=== PATIENT | male | born 1955 | race Hispanic/Latino ===

== ENCOUNTER → 2018-05-08 | Outpatient (CLI) | payer OTHER ==
[~2018-05-08] MED LIST: ACET-66 PO; ATOR10 PO; CELE200 PO; DAPA5TAB PO; DRON400T2 PO; FENO48TA4 PO; FERR324T10 PO; FISH1CAP63 PO; LOSA1TAB37 PO; METF-446 PO; METO25TA6 PO; OXYC5 PO; PREG25 PO; RIVA10TA PO; SITA100T12 PO; TRAM50TA4 PO
== END | disposition home or self-care (01) ==
LOC: RAH 07:45
PROVIDERS: ATTEND Orthopaedic Surgery
DX: S43.082A Other subluxation of left shoulder joint, initial encounter (principal); M19.012 Primary osteoarthritis, left shoulder; M75.102 Unspecified rotator cuff tear or rupture of left shoulder, not specified as traumatic; M25.412 Effusion, left shoulder; M25.712 Osteophyte, left shoulder; X58.XXXA Exposure to other specified factors, initial encounter; Y93.89 Activity, other specified; Y92.89 Other specified places as the place of occurrence of the external cause; Y99.8 Other external cause status
CPT/HCPCS: 73221

== ENCOUNTER → 2018-08-28 | Outpatient (CLI) | payer OTHER | END | disposition home or self-care (01) | LOC: RAH 07:42 | PROVIDERS: ATTEND Orthopaedic Surgery | DX: M65.811 Other synovitis and tenosynovitis, right shoulder (principal); M25.411 Effusion, right shoulder; M19.011 Primary osteoarthritis, right shoulder; M75.51 Bursitis of right shoulder | CPT/HCPCS: 73221 ==

== ENCOUNTER 2019-01-09 06:00 | Day surgery (SDC) | payer OTHER ==
[~2019-01-09] VITALS: Ht 167.6 cm; Wt 110.7 kg
[~2019-01-09 06:00] MED LIST changes: -ACET-66 PO; +APIX5TAB PO; +CALC-866 PO; -CELE200 PO; -DAPA5TAB PO; +EMPA10TA PO; +FENO48TA16 PO; -FENO48TA4 PO; -FERR324T10 PO; -METO25TA6 PO; -OXYC5 PO; -PREG25 PO; -RIVA10TA PO; -SITA100T12 PO
[2019-01-09] MEDS ORDERED: SODIUM CHLORIDE 0.9% 1000ML 1,000 ML IV ONE (06:13)
[2019-01-09 06:59] VITALS: BP 122/69
[2019-01-09] MEDS ORDERED: GLYCOPYRROLATE 0.2 MG/ML 5 ML VIAL ONE (08:05)
[2019-01-09] MEDS ORDERED: PROPOFOL 10 MG/ML 20ML VIAL IV ONE (08:05)
[2019-01-09 08:28] VITALS: BP 116/75
[2019-01-09 08:33] VITALS: BP 114/75
[2019-01-09 08:38] VITALS: BP 115/73
[2019-01-09 08:43] VITALS: BP 116/73
--- NOTE | 2019-01-09 09:00 | NUR ---
dc pt dc home via wc, no distress noted. denied any pain or discomforts. accompanied by spouse. dc intructions reinforced, instructed to hold eliquis for 48 hrs. to resume other homemeds, to f/u with dr. zambrano. pt / spouse verbalized understanding.
== END 2019-01-09 09:00 | disposition home or self-care (01) ==
LOC: DAH 06:00 → ENDO 06:00
PROVIDERS: ATTEND Internal Medicine
DX: K92.1 Melena (principal); D12.4 Benign neoplasm of descending colon; D12.2 Benign neoplasm of ascending colon; K64.0 First degree hemorrhoids; K57.30 Diverticulosis of large intestine without perforation or abscess without bleeding; I10 Essential (primary) hypertension; E78.5 Hyperlipidemia, unspecified; E11.9 Type 2 diabetes mellitus without complications; K21.9 Gastro-esophageal reflux disease without esophagitis; I48.91 Unspecified atrial fibrillation; Z79.01 Long term (current) use of anticoagulants; Z79.899 Other long term (current) drug therapy; Z86.010 Personal history of colon polyps; Z98.890 Other specified postprocedural states; Z72.89 Other problems related to lifestyle; Z91.048 Other nonmedicinal substance allergy status; Z83.3 Family history of diabetes mellitus; Z82.49 Family history of ischemic heart disease and other diseases of the circulatory system
CPT/HCPCS: 45380; 45385; 82948 ×2; 88305; A4215; A4221; A4222; A4223; A4606; A4615; A4663; J2704; J3490; J7030

== ENCOUNTER → 2019-01-23 | Outpatient (CLI) | payer OTHER | END | disposition home or self-care (01) | LOC: RAH 06:58 | PROVIDERS: ATTEND Internal Medicine Gastroenterology | DX: R14.0 Abdominal distension (gaseous) (principal) | CPT/HCPCS: 78264; A9541 ==

== ENCOUNTER 2019-04-04 09:57 | Day surgery (SDC) | payer OTHER ==
[2019-04-03 13:19] LABS: BASOPHILS % (AUTO) 0.5 % (0.0-5.0); EOSINOPHILS % (AUTO) 1.3 % (0.0-8.0); HEMATOCRIT 50.5 % (42-54); MEAN CORPUSCULAR HGB CONC 32.7 g/dL (32.0-36.0); MEAN CORPUSCULAR VOLUME 91.8 fL (79-99); MONOCYTES % (AUTO) 9.3 % (3.0-13.0); NEUTROPHILS % (AUTO) 55.3 % (40.0-77.0); PLATELET COUNT (AUTO) 163 K/uL (130-400); RED CELL DISTRIBUTION WIDTH 13.3 % (11.0-15.5); WHITE BLOOD COUNT (AUTO) 6.2 K/uL (4.8-10.8)
[2019-04-03 13:29] LABS: POTASSIUM 4.5 mmol/L (3.5-5.1)
[2019-04-03 13:44] VITALS: BP 157/70
--- NOTE | 2019-04-03 19:02 | NUR ---
MD DR. HUSSEIN NOTIFIED THAT PATIENT ON ANTIBIOTIC FOR EAR INFECTION, NO FURTHER ORDERS GIVEN
[~2019-04-04] VITALS: Ht 170.2 cm; Wt 111.1 kg
[2019-04-04] VITALS (13 sets, daily range): BP systolic 102–127; BP diastolic 54–94
[~2019-04-04 09:57] MED LIST changes: -FENO48TA16 PO; +FENO48TA9 PO
[2019-04-04] MEDS: CEFAZOLIN SODIUM 1 GM VIAL IVP SCH ×2 (11:00→14:12)
[2019-04-04] MEDS ORDERED: SODIUM CHLORIDE 0.9% 1000ML 1,000 ML IV ONE (11:12)
--- NOTE | 2019-04-04 11:35 | NUR ---
POTENTIAL FOR INFECTION: SHAVED RIGHT SHOULDER / RT UPPER ARM PER SAMANTHA RODRIGUEZ, FOLLOWED BY WIPING WITH SARATH: 2% CHLORHEXIDINE GLUCONATE CLOTH PATIENTS PRE-OP SKIN PREP
[2019-04-04] MEDS ORDERED: AMOX500C2 PO (11:41)
[2019-04-04] MEDS ORDERED: NAPR-1023 PO (11:41)
[2019-04-04] MEDS ORDERED: EPINEPHRINE 1 MG/ML 30ML VIAL IJ ONE (12:11)
[2019-04-04] MEDS ORDERED: SUCCINYLCHOLINE 200MG/10ML SYR ONE (12:15)
[2019-04-04] MEDS ORDERED: LIDOCAINE PF 2% 5ML ABBOJECT ONE (12:15)
[2019-04-04] MEDS ORDERED: PROPOFOL 10 MG/ML 20ML VIAL IV ONE (12:16)
[2019-04-04] MEDS ORDERED: ROCURONIUM 10MG/1ML SYR 10 MG/ML ML ONE (12:16)
[2019-04-04] MEDS ORDERED: FENTANYL CITRATE PF 50 MCG/1 ML 2ML VIAL ONE (12:16)
[2019-04-04] MEDS ORDERED: ROPIVACAINE 0.5% 5MG/ML 30ML IJ ONE (12:20)
[2019-04-04] MEDS ORDERED: EPHEDRINE SULFATE 50 MG/ML AMPULE ONE (13:45)
[2019-04-04] MEDS ORDERED: NEOSTIGMINE 5MG/5ML SYR IV ONE (16:32)
[2019-04-04] MEDS ORDERED: KETOROLAC TROMETHAMINE 30MG/ML ONE (16:32)
[2019-04-04] MEDS ORDERED: ONDANSETRON HCL 4 MG/2 ML VIAL ONE (16:32)
[2019-04-04] MEDS ORDERED: GLYCOPYRROLATE 1 MG/5 ML SYRINGE ONE (16:32)
[2019-04-04] MEDS ORDERED: CEPH500B PO (17:00)
[2019-04-04] MEDS ORDERED: HYDR-4457 PO (17:00)
--- NOTE | 2019-04-04 18:00 | NUR ---
PATIENT ARRIVED TO DAY PATIENT VIA STRETCHER BY JAMIN YOUNGBLOOD. PATIENT AAOX3, RESPIRATIONS UNLABORED, VITAL SIGNS STABLE, DENIES ANY PAIN. DRESSINGS TO RIGHT UPPER SHOULDER DRY/INTACT, SLING IN PLACE.
--- NOTE | 2019-04-04 18:30 | NUR ---
DISCHARGE INSTRUCTIONS PROVIDED TO PATIENT'S SPOUSE, PRESCRIPTIONS PROVIDED AND INSTRUCTED TO CALL DR HUSSEIN IN THE AM TO SET UP APPOINTMENT FOR 04/06/19. PATIENT'S SPOUSE VERBALIZED UNDERSTANDING.
--- NOTE | 2019-04-04 18:50 | NUR ---
PATIENT DISCHARGED FROM FACILITY VIA WHEELCHAIR BY NURSE. PATIENT ASSISTED INTO PRIVATE VEHICLE DRIVEN BY SPOUSE.
== END 2019-04-04 18:50 | disposition home or self-care (01) ==
LOC: DAH 09:57
PROVIDERS: ATTEND Orthopaedic Surgery
DX: M75.101 Unspecified rotator cuff tear or rupture of right shoulder, not specified as traumatic (principal); M65.811 Other synovitis and tenosynovitis, right shoulder; M25.411 Effusion, right shoulder; M19.011 Primary osteoarthritis, right shoulder; M75.41 Impingement syndrome of right shoulder; G89.29 Other chronic pain; I10 Essential (primary) hypertension; E11.9 Type 2 diabetes mellitus without complications; Z96.653 Presence of artificial knee joint, bilateral; Z79.01 Long term (current) use of anticoagulants; Z88.8 Allergy status to other drugs, medicaments and biological substances; Z98.890 Other specified postprocedural states; Z83.3 Family history of diabetes mellitus; Z79.2 Long term (current) use of antibiotics; Z87.891 Personal history of nicotine dependence; Z82.49 Family history of ischemic heart disease and other diseases of the circulatory system
CPT/HCPCS: 29824; 29826; 29827; 29828; 36415; 64415; 76942; 80048; 82948 ×2; 85025; A4213; A4215; A4221; A4222; A4223; A4565; A4649 ×6; A4663; A4930; A5120; A6204; A6223; A6260; C1713 ×3; G0168; J0171; J0330; J0690; J1885; J2001; J2405; J2704; J2710; J2795; J3010; J3490 ×2; J7030 ×2

== ENCOUNTER → 2019-05-07 | Outpatient (CLI) | payer OTHER ==
[~2019-05-07] MED LIST changes: +AMOX500C2 PO; -CALC-866 PO; +CEPH500B PO; -FISH1CAP63 PO; +HYDR-4457 PO
== END | disposition home or self-care (01) ==
LOC: SLP 20:35
PROVIDERS: ATTEND Internal Medicine Cardiovascular Disease
DX: G47.33 Obstructive sleep apnea (adult) (pediatric) (principal)
CPT/HCPCS: 95811

== ENCOUNTER → 2019-10-25 | Outpatient (CLI) | payer OTHER | END | disposition home or self-care (01) | LOC: RAH 09:00 | PROVIDERS: ATTEND Orthopaedic Surgery | DX: M19.011 Primary osteoarthritis, right shoulder (principal); M75.51 Bursitis of right shoulder | CPT/HCPCS: 73221 ==

== ENCOUNTER → 2019-11-27 | Outpatient (CLI) | payer OTHER | END | disposition home or self-care (01) | LOC: SHCH 08:27 | PROVIDERS: ATTEND Internal Medicine Cardiovascular Disease | DX: I25.119 Atherosclerotic heart disease of native coronary artery with unspecified angina pectoris (principal) | CPT/HCPCS: 93306; 93356 ==

== ENCOUNTER 2019-12-26 06:00 | Day surgery (SDC) | payer OTHER ==
[2019-12-24 13:29] LABS: BASOPHILS % (AUTO) 0.5 % (0.0-5.0); EOSINOPHILS % (AUTO) 1.1 % (0.0-8.0); HEMATOCRIT 48.7 % (42-54); MEAN CORPUSCULAR HEMOGLOBIN 31.5 pg (27.0-33.0); MEAN CORPUSCULAR HGB CONC 33.5 g/dL (32.0-36.0); MEAN CORPUSCULAR VOLUME 94.2 fL (79-99); MONOCYTES % (AUTO) 7.1 % (3.0-13.0); NEUTROPHILS % (AUTO) 47.5 % (40.0-77.0); PLATELET COUNT (AUTO) 222 K/uL (130-400); RED BLOOD CELL COUNT(AUTO) 5.17 MIL/uL (4.50-6.20); RED CELL DISTRIBUTION WIDTH 13.2 % (11.0-15.5); WHITE BLOOD COUNT (AUTO) 7.5 K/uL (4.8-10.8)
[2019-12-24 13:37] LABS: APPEARANCE,URINE Clear (CLEAR); BILIRUBIN,URINE Negative (NEGATIVE); COLOR,URINE Yellow (YELLOW); GLUCOSE, URINE (UA) >=1000 mg/dL (NEGATIVE); KETONES,URINE Negative (NEGATIVE); LEUKOCYTE ESTERASE ,URINE Negative (NEGATIVE); NITRATE,URINE Negative (NEGATIVE); OCCULT BLOOD,URINE Negative (NEGATIVE); PH,URINE 5.5 (5.0-8.0); PROTEIN,URINE Negative (NEGATIVE)
[2019-12-24 13:47] LABS: CREATININE 0.8 mg/dL (0.5-1.5)
[2019-12-24 13:50] LABS: BACTERIA,URINE Rare /HPF (None Seen); MUCUS,URINE Few LPF (None Seen); RBC,URINE 0-1 /HPF (0-1); SQUAMOUS EPITHELIAL CELL,UR Rare /HPF (0-2); WBC,URINE 0-1 /HPF (0-1)
[2019-12-24 13:54] LABS: INR 0.95 (0.85-1.15); PARTIAL THROMBOPLASTIN TIME 28.3 SEC (26.3-35.5); PROTHROMBIN TIME 10.3 SEC (9.6-11.6)
[2019-12-25 09:14] VITALS: BP 143/71
[2019-12-26] VITALS (19 sets, daily range): BP systolic 99–132; BP diastolic 50–71
[~2019-12-26] VITALS: Ht 170.2 cm; Wt 105.5 kg
[~2019-12-26 06:00] MED LIST changes: -AMOX500C2 PO; -CEPH500B PO; +HYDR-4060 PO; -HYDR-4457 PO; -LOSA1TAB37 PO; -TRAM50TA4 PO; +VALS80TA30 PO
[2019-12-26] MEDS ORDERED: IOHEXOL 350 MG/ML 100ML INFUS..BTL IV ONE (07:09)
[2019-12-26] MEDS ORDERED: HEPARIN SODIUM 1000UNIT/ML 10ML VIAL ONE (07:09)
[2019-12-26] MEDS ORDERED: LIDOCAINE HCL 2% 20ML ONE (07:09)
[2019-12-26] MEDS ORDERED: IOHEXOL-350 50ML VIAL IV ONE ×2 (07:09→07:10)
[2019-12-26] MEDS ORDERED: GLUCAGON 1MG KIT 1 MG ML IM PRN (08:00)
[2019-12-26] MEDS ORDERED: DEXTROSE 50%-WATER 50 ML DISP.SYRIN IV PRN (08:00)
[2019-12-26] MEDS ORDERED: SODIUM CHLORIDE 0.9% 1000ML 1,000 ML IV SCH (08:00)
[2019-12-26] MEDS ORDERED: INSULIN HUMULIN R 100 UNIT/ML 3ML SQ SCH (11:30)
== END 2019-12-26 16:05 | disposition home or self-care (01) ==
LOC: DAH 06:00
PROVIDERS: ATTEND Internal Medicine Cardiovascular Disease
DX: I25.10 Atherosclerotic heart disease of native coronary artery without angina pectoris (principal); I10 Essential (primary) hypertension; E11.9 Type 2 diabetes mellitus without complications; M19.90 Unspecified osteoarthritis, unspecified site; I48.0 Paroxysmal atrial fibrillation; Z79.01 Long term (current) use of anticoagulants; Z79.899 Other long term (current) drug therapy
CPT/HCPCS: 36415; 71045; 80048; 81001; 82948 ×3; 85025; 85610; 85730; 93005; 93458; A4215; A4216; A4221; A4222; A4223 ×2; A4606; C1894; J1644 ×2; J3490; J7070; Q9965; Q9967 ×3

== ENCOUNTER 2020-01-23 06:18 | Day surgery (SDC) | payer OTHER ==
[2020-01-16 15:01] LABS: BASOPHILS % (AUTO) 0.9 % (0.0-5.0); EOSINOPHILS % (AUTO) 1.3 % (0.0-8.0); LYMPHOCYTES % (AUTO) 39.6 % (21.0-51.0); MEAN CORPUSCULAR HEMOGLOBIN 30.9 pg (27.0-33.0); MEAN CORPUSCULAR HGB CONC 33.1 g/dL (32.0-36.0); MEAN CORPUSCULAR VOLUME 93.5 fL (79-99); MONOCYTES % (AUTO) 8.4 % (3.0-13.0); NEUTROPHILS % (AUTO) 49.2 % (40.0-77.0); PLATELET COUNT (AUTO) 243 K/uL (130-400); RED BLOOD CELL COUNT(AUTO) 5.56 MIL/uL (4.50-6.20); RED CELL DISTRIBUTION WIDTH 13.1 % (11.0-15.5); WHITE BLOOD COUNT (AUTO) 7.8 K/uL (4.8-10.8)
[2020-01-16 15:07] LABS: CREATININE 1.1 mg/dL (0.5-1.5)
[2020-01-22 11:38] VITALS: BP 134/72
[2020-01-23] VITALS (19 sets, daily range): BP systolic 104–133; BP diastolic 56–73
[~2020-01-23] VITALS: Ht 170.2 cm; Wt 106.3 kg
[~2020-01-23 06:18] MED LIST changes: -DRON400T2 PO; +FLUT16H NASAL; +MV-M1TAB20 PO; +PROP325C PO
[2020-01-23] MEDS ORDERED: SODIUM CHLORIDE 0.9% 1000ML 1,000 ML IV ONE (07:26)
[2020-01-23] MEDS ORDERED: ROCURONIUM 10MG/1ML SYR 10 MG/ML ML ONE (07:46)
[2020-01-23] MEDS ORDERED: FENTANYL CITRATE PF 50 MCG/1 ML 2ML VIAL ONE (07:46)
[2020-01-23] MEDS ORDERED: PROPOFOL 10 MG/ML 20ML VIAL IV ONE (07:46)
[2020-01-23] MEDS ORDERED: SUCCINYLCHOLINE CHLORIDE 20 MG/ML 10 ML VIAL ONE (07:46)
[2020-01-23] MEDS ORDERED: LIDOCAINE PF 2% 5ML ABBOJECT ONE (07:46)
[2020-01-23] MEDS ORDERED: ROPIVACAINE 0.5% 5MG/ML 30ML IJ ONE (07:51)
[2020-01-23] MEDS: CEFAZOLIN SODIUM 1 GM VIAL IVP SCH ×2 (08:00→10:45)
[2020-01-23] MEDS ORDERED: MIDAZOLAM HCL 1 MG/ML 2ML VIAL ONE (08:02)
[2020-01-23] MEDS ORDERED: CEFAZOLIN SODIUM 1 GM VIAL ONE (09:16)
[2020-01-23] MEDS ORDERED: EPHEDRINE SULFATE 50 MG/ML AMPULE ONE (10:41)
[2020-01-23] MEDS ORDERED: GLYCOPYRROLATE 1 MG/5 ML SYRINGE ONE (12:23)
[2020-01-23] MEDS ORDERED: NEOSTIGMINE 5MG/5ML SYR IV ONE (12:23)
[2020-01-23] MEDS ORDERED: ONDANSETRON HCL 4 MG/2 ML VIAL ONE (12:24)
[2020-01-23] MEDS ORDERED: KETOROLAC TROMETHAMINE 30MG/ML ONE (12:25)
[2020-01-23] MEDS ORDERED: MEPERIDINE-PF 25 MG/ML SYG ONE ×3 (12:30→13:08)
[2020-01-23] MEDS ORDERED: HYDR-4060 PO (12:45)
[2020-01-23] MEDS ORDERED: CEPH500B PO (12:45)
== END 2020-01-23 14:10 | disposition home or self-care (01) ==
LOC: DAH 06:18
PROVIDERS: ATTEND Orthopaedic Surgery
DX: M75.101 Unspecified rotator cuff tear or rupture of right shoulder, not specified as traumatic (principal); Z96.653 Presence of artificial knee joint, bilateral; Z98.890 Other specified postprocedural states
CPT/HCPCS: 23412; 36415; 64415; 76942; 80048; 82948 ×2; 85025; 96374; A4215; A4216; A4221; A4222; A4223 ×2; A4565; A4600; A4615; A4649; A4657; A4663; A4930; A6204; C1713 ×2; C9803; G0168; J0330; J0690 ×2; J1885; J2001; J2175 ×3; J2250; J2405; J2704; J2710; J2795; J3010; J3490 ×2; J7030 ×2; U0003

== ENCOUNTER → 2021-05-11 | Outpatient (CLI) | payer MEDICARE ==
[~2021-05-11] MED LIST changes: +CEPH500B PO; +FENO48TA10 PO; -FENO48TA9 PO
== END | disposition home or self-care (01) ==
LOC: RAH 07:14
PROVIDERS: ATTEND Internal Medicine Gastroenterology
DX: R10.84 Generalized abdominal pain (principal); R11.0 Nausea
CPT/HCPCS: 78264; A9541

== ENCOUNTER 2021-06-28 18:03 | Emergency (ER) | payer MEDICARE ==
[~2021-06-28] VITALS: Ht 170.2 cm; Wt 112.9 kg
[2021-06-28] MEDS ORDERED: 0.9%NACL 1000ML 1,000 ML IV ONE ×2 (18:30)
[2021-06-28 18:34] LABS: BASOPHILS % (AUTO) 0.3 % (0.0-5.0); HEMATOCRIT 43.8 % (42-54); LYMPHOCYTES % (AUTO) 14.1 % (21.0-51.0); MEAN CORPUSCULAR HEMOGLOBIN 29.9 pg (27.0-33.0); MEAN CORPUSCULAR HGB CONC 32.9 g/dL (32.0-36.0); MEAN CORPUSCULAR VOLUME 90.9 fL (79-99); MONOCYTES % (AUTO) 6.3 % (3.0-13.0); NEUTROPHILS % (AUTO) 78.5 % (40.0-77.0); PLATELET COUNT (AUTO) 163 K/uL (130-400); RED BLOOD CELL COUNT(AUTO) 4.82 MIL/uL (4.50-6.20); RED CELL DISTRIBUTION WIDTH 12.8 % (11.0-15.5); WHITE BLOOD COUNT (AUTO) 7.9 K/uL (4.8-10.8)
[2021-06-28 18:44] LABS: CREATININE 0.8 mg/dL (0.5-1.5); POTASSIUM 3.5 mmol/L (3.5-5.1)
[2021-06-28 18:47] LABS: APPEARANCE,URINE Clear (CLEAR); BILIRUBIN,URINE Negative (NEGATIVE); COLOR,URINE Yellow (YELLOW); GLUCOSE, URINE (UA) Negative (NEGATIVE); KETONES,URINE Trace mg/dL (NEGATIVE); LEUKOCYTE ESTERASE ,URINE Negative (NEGATIVE); NITRATE,URINE Negative (NEGATIVE); OCCULT BLOOD,URINE Negative (NEGATIVE); PROTEIN,URINE Negative (NEGATIVE)
[2021-06-28 18:52] LABS: ALBUMIN 3.2 g/dL (3.5-5.0); BILIRUBIN,TOTAL 0.9 mg/dL (0.2-1.0); TOTAL PROTEIN, SERUM 6.5 g/dL (6.0-8.3)
[2021-06-28] MEDS ORDERED: LOPERAMIDE HCL 2 MG CAP PO ONE (19:00)
[2021-06-28] MEDS ORDERED: ONDANSETRON 4MG INJ ONE (19:54)
[2021-06-28] MEDS ORDERED: MORPHINE 2 MG SYG ONE (19:54)
[2021-06-28] MEDS ORDERED: ONDANSETRON 4MG INJ IVP ONE (20:00)
[2021-06-28] MEDS ORDERED: MORPHINE 2 MG SYG IVP ONE (20:00)
[2021-06-28 21:00] VITALS: BP 106/53
[2021-06-28] MEDS ORDERED: ONDA4TAB10 PO (21:25)
[2021-06-28] MEDS ORDERED: LOPE2CAP PO (21:25)
[2021-06-28] MEDS ORDERED: DICY20TA2 PO (21:25)
== END 2021-06-28 21:55 | disposition home or self-care (01) ==
LOC: EDH 18:03
DX: K52.9 Noninfective gastroenteritis and colitis, unspecified (principal); E86.0 Dehydration; I48.91 Unspecified atrial fibrillation; E11.9 Type 2 diabetes mellitus without complications; I10 Essential (primary) hypertension; Z88.8 Allergy status to other drugs, medicaments and biological substances; Z79.899 Other long term (current) drug therapy; Z79.01 Long term (current) use of anticoagulants; Z79.84 Long term (current) use of oral hypoglycemic drugs; Z98.890 Other specified postprocedural states
CPT/HCPCS: 36415; 80053; 81003; 83605; 83735; 84145; 84484; 85025; 87088; 96361; 96374; 96375; 99284; J2405; J7030 ×2

== ENCOUNTER → 2021-09-15 | Outpatient (CLI) | payer MEDICARE ==
[~2021-09-15] MED LIST changes: +DICY20TA2 PO; +LOPE2CAP PO; +ONDA4TAB10 PO
== END | disposition home or self-care (01) ==
LOC: RAH 08:15
PROVIDERS: ATTEND Orthopaedic Surgery
DX: M19.011 Primary osteoarthritis, right shoulder (principal); M75.41 Impingement syndrome of right shoulder; M75.51 Bursitis of right shoulder; Z47.31 Aftercare following explantation of shoulder joint prosthesis
CPT/HCPCS: 73221

== ENCOUNTER → 2022-01-29 | Outpatient (CLI) | payer MEDICARE | END | disposition home or self-care (01) | LOC: RAH 11:45 | PROVIDERS: ATTEND Internal Medicine | DX: M19.012 Primary osteoarthritis, left shoulder (principal); M06.4 Inflammatory polyarthropathy; M25.775 Osteophyte, left foot; M77.8 Other enthesopathies, not elsewhere classified; M75.102 Unspecified rotator cuff tear or rupture of left shoulder, not specified as traumatic | CPT/HCPCS: 73030; 73630 ==

== ENCOUNTER → 2022-09-07 | Outpatient (CLI) | payer MEDICARE | END | disposition home or self-care (01) | LOC: SHCH 08:42 | PROVIDERS: ATTEND Internal Medicine Cardiovascular Disease | DX: I42.0 Dilated cardiomyopathy (principal) | CPT/HCPCS: 93306 ==

== ENCOUNTER 2022-12-14 09:53 | Day surgery (SDC) | payer MEDICARE ==
[2022-12-10 15:16] LABS: BASOPHILS # (AUTO) 0.03 K/uL (0.00-0.20); BASOPHILS % (AUTO) 0.4 % (0.0-5.0); EOSINOPHILS # (AUTO) 0.14 K/uL (0.00-0.70); EOSINOPHILS % (AUTO) 2.1 % (0.0-8.0); HEMATOCRIT 48.1 % (42-54); IMMATURE GRANULOCYTE ABSOLUTE 0.04 K/uL (0-1); LYMPHOCYTES # (AUTO) 3.3 K/uL (1.0-4.8); LYMPHOCYTES % (AUTO) 48.8 % (21.0-51.0); MEAN CORPUSCULAR HEMOGLOBIN 30.7 pg (27.0-33.0); MEAN CORPUSCULAR HGB CONC 33.3 g/dL (32.0-36.0); MEAN CORPUSCULAR VOLUME 92.1 fL (79-99); MONOCYTES # (AUTO) 0.6 K/uL (0.1-1.0); MONOCYTES % (AUTO) 9.3 % (3.0-13.0); NEUTROPHILS # (AUTO) 2.6 K/uL (1.8-7.7); NEUTROPHILS % (AUTO) 38.8 % (40.0-77.0); PLATELET COUNT (AUTO) 196 K/uL (130-400); RED BLOOD CELL COUNT(AUTO) 5.22 MIL/uL (4.50-6.20); RED CELL DISTRIBUTION WIDTH 13.3 % (11.0-15.5); WHITE BLOOD COUNT (AUTO) 6.8 K/uL (4.8-10.8)
[2022-12-10 15:33] LABS: INR 0.98 (0.85-1.15); PROTHROMBIN TIME 11.4 SEC (9.6-11.6)
[2022-12-10 15:35] LABS: PARTIAL THROMBOPLASTIN TIME 33.5 SEC (26.3-35.5)
[2022-12-10 15:36] LABS: CREATININE 0.9 mg/dL (0.5-1.5); POTASSIUM 4.1 mmol/L (3.5-5.1)
[2022-12-10 15:44] VITALS: BP 135/69; PULSE 54; RESP 12
[~2022-12-14] VITALS: Ht 170.2 cm; Wt 110.7 kg
[~2022-12-14 09:53] MED LIST changes: +ALBU6.7H14 IH; -ATOR10 PO; +ATOR40TA69 PO; -CEPH500B PO; +CHOL500051 PO; -DICY20TA2 PO; -FENO48TA10 PO; -HYDR-4060 PO; +LACT1CAP81 PO; -LOPE2CAP PO; -MV-M1TAB20 PO; -ONDA4TAB10 PO; +PYRI100L2 PO; +VITA400T7 PO; +VITAMIN B12 PO
[2022-12-14 10:00] VITALS: BP 124/61; PULSE 53; RESP 16
[2022-12-14] MEDS ORDERED: 0.9%NACL 1000ML 1,000 ML IV ONE (10:30)
[2022-12-14] MEDS ORDERED: LIDOCAINE HCL 1% MDV 50ML VIAL ONE (12:14)
[2022-12-14] MEDS ORDERED: MEPERIDINE-PF 25 MG/ML SYG ONE (12:14)
[2022-12-14] MEDS ORDERED: MIDAZOLAM HCL 1 MG/ML 2ML VIAL ONE (12:14)
[2022-12-14] MEDS ORDERED: BUPIVACAINE/PF 0.25% 30ML VIAL IJ ONE (12:14)
[2022-12-14] MEDS ORDERED: BACITRACIN 1 EACH PACKET TP ONE (12:55)
[2022-12-14 13:20] VITALS: BP 110/67; PULSE 53; RESP 18
[2022-12-14] MEDS ORDERED: ACETAMINOPHEN 500 MG TABLET PO PRN (13:30)
[2022-12-14] MEDS ORDERED: ACETAMINOPHEN WITH CODEINE 1 TAB TAB PO PRN ×3 (13:30)
[2022-12-14 13:35] VITALS: BP 134/86; PULSE 61; RESP 14
[2022-12-14 13:50] VITALS: BP 121/64; PULSE 62; RESP 19
[2022-12-14 14:10] VITALS: BP 112/66; PULSE 60; RESP 20
[2022-12-14 14:25] VITALS: BP 118/68
== END 2022-12-14 14:30 | disposition home or self-care (01) ==
LOC: DAH 09:53
PROVIDERS: ATTEND Internal Medicine Cardiovascular Disease
DX: I48.0 Paroxysmal atrial fibrillation (principal); R00.1 Bradycardia, unspecified; I10 Essential (primary) hypertension; E11.9 Type 2 diabetes mellitus without complications; G47.33 Obstructive sleep apnea (adult) (pediatric); I42.9 Cardiomyopathy, unspecified; E66.09 Other obesity due to excess calories; E78.5 Hyperlipidemia, unspecified; Z86.16 Personal history of COVID-19; Z83.3 Family history of diabetes mellitus; Z82.49 Family history of ischemic heart disease and other diseases of the circulatory system; Z79.899 Other long term (current) drug therapy; Z98.890 Other specified postprocedural states; Z79.84 Long term (current) use of oral hypoglycemic drugs; Z96.653 Presence of artificial knee joint, bilateral; Z68.41 Body mass index [BMI] 40.0-44.9, adult; Z79.01 Long term (current) use of anticoagulants
CPT/HCPCS: 80048; 85025; 85610; 85730; 36415; 93005; 33285; 82948 ×2; 33286; A4649; C1764; J7030; J3490 ×2; J2250; J2175; A4215; A4222; A4221; A4663; A4216; A4606; A4223 ×3; 99156; 99157

== ENCOUNTER 2023-11-28 09:23 | Emergency (ER) | payer MEDICARE ==
[~2023-11-28] VITALS: Ht 167.6 cm; Wt 108.9 kg
[~2023-11-28 09:23] MED LIST changes: -ALBU6.7H14 IH; +AZEL23SP2 NS; -CHOL500051 PO; -FLUT16H NASAL; +INSULIN SQ; -LACT1CAP81 PO; +PANT40TA55 PO; -PROP325C PO; -PYRI100L2 PO; +SUCR1TAB2 PO; -VITA400T7 PO; -VITAMIN B12 PO
[2023-11-28 09:56] LABS: BASOPHILS # (AUTO) 0.03 K/uL (0.00-0.20); BASOPHILS % (AUTO) 0.5 % (0.0-5.0); EOSINOPHILS # (AUTO) 0.11 K/uL (0.00-0.70); EOSINOPHILS % (AUTO) 1.9 % (0.0-8.0); HEMATOCRIT 45.8 % (42-54); IMMATURE GRANULOCYTE ABSOLUTE 0.02 K/uL (0-1); LYMPHOCYTES # (AUTO) 1.7 K/uL (1.0-4.8); LYMPHOCYTES % (AUTO) 30.6 % (21.0-51.0); MEAN CORPUSCULAR HEMOGLOBIN 30.7 pg (27.0-33.0); MEAN CORPUSCULAR HGB CONC 34.3 g/dL (32.0-36.0); MEAN CORPUSCULAR VOLUME 89.5 fL (79-99); MONOCYTES # (AUTO) 0.4 K/uL (0.1-1.0); MONOCYTES % (AUTO) 7.2 % (3.0-13.0); NEUTROPHILS # (AUTO) 3.4 K/uL (1.8-7.7); NEUTROPHILS % (AUTO) 59.4 % (40.0-77.0); PLATELET COUNT (AUTO) 144 K/uL (130-400); RED BLOOD CELL COUNT(AUTO) 5.12 MIL/uL (4.50-6.20); RED CELL DISTRIBUTION WIDTH 13.6 % (11.0-15.5); WHITE BLOOD COUNT (AUTO) 5.7 K/uL (4.8-10.8)
[2023-11-28 10:03] LABS: CREATININE 0.8 mg/dL (0.5-1.3); POTASSIUM 3.6 mmol/L (3.5-5.1)
[2023-11-28] MEDS: 0.9%NACL 1000ML 1,000 ML IV ONE (10:53)
[2023-11-28] MEDS: ketOROlac 15MG/ML VIAL (15MG/ML) IV ONE (10:53)
[2023-11-28] MEDS: ONDANSETRON 4MG INJ IVP ONE (10:53)
[2023-11-28 11:17] LABS: APPEARANCE,URINE CLEAR (CLEAR); BILIRUBIN,URINE NEGATIVE (NEGATIVE); COLOR,URINE YELLOW (YELLOW); GLUCOSE, URINE (UA) >=1000 mg/dL (NEGATIVE); KETONES,URINE 60 mg/dL (NEGATIVE); LEUKOCYTE ESTERASE ,URINE NEGATIVE Leu/uL (NEGATIVE); NITRATE,URINE NEGATIVE (NEGATIVE); OCCULT BLOOD,URINE NEGATIVE (NEGATIVE); PH,URINE 5.5 (5.0-8.0); PROTEIN,URINE 10 mg/dL (NEGATIVE); UROBILINOGEN,URINE 0.2 mg/dL (0.2-1.0)
[2023-11-28 11:18] LABS: ADD UA MICROSCOPIC YES
[2023-11-28 11:22] LABS: MUCUS,URINE RARE LPF (None Seen); RBC,URINE 0-1 /HPF (0-1); WBC,URINE 0-1 /HPF (0-1)
[2023-11-28] MEDS: acetaMINOPHEN 500 MG TABLET PO ONE (11:45)
[2023-11-28 12:09] VITALS: BP 116/65; PULSE 69; RESP 17; TEMP 99.6; O2SAT 92
[2023-11-28] MEDS ORDERED: PRED20TA3 PO (14:52)
[2023-11-28] MEDS ORDERED: SULF1TAB42 PO (14:52)
== END 2023-11-28 15:19 | disposition home or self-care (01) ==
LOC: EDH 09:23
DX: E86.0 Dehydration (principal); J32.8 Other chronic sinusitis; G89.29 Other chronic pain; R51.9 Headache, unspecified; E11.9 Type 2 diabetes mellitus without complications; I10 Essential (primary) hypertension; I48.91 Unspecified atrial fibrillation; Z79.01 Long term (current) use of anticoagulants; Z79.84 Long term (current) use of oral hypoglycemic drugs; Z79.899 Other long term (current) drug therapy; Z98.890 Other specified postprocedural states
CPT/HCPCS: 99285; 96374; 71045; 96361; 96375; 84484; 80048; 85025; 87040; 83605; 81001; 36415; 93005; J7030; J2405; J1885

== ENCOUNTER 2024-02-17 19:30 | Emergency (ER) | payer MEDICARE ==
[~2024-02-17] VITALS: Ht 167.6 cm; Wt 104.3 kg
[~2024-02-17 19:30] MED LIST changes: +PRED20TA3 PO; +SULF1TAB42 PO
[2024-02-17 20:27] VITALS: BP 132/84; PULSE 64; RESP 16; TEMP 98; O2SAT 98
--- NOTE | 2024-02-17 20:31 | ERN ---
General Chief Complaint: Other Problems Stated Complaint: WANTS TB CHECK Time Seen by MD: 19:34 Time Seen by Midlevel: 19:34 Source: patient History of Present Illness Initial Comments Patient is a 61-year-old male presenting to the emergency department with concerns of a possible TB exposure. Patient states that on February 08 he visited a local assisted here in [place]. He was in the assisted for less than an hour visiting a relative. Today on the news he was informed that there was a TB case in that same assisted. On arrival he specifically denies any chest pain, shortness of breath, cough, hemoptysis, fever, chills, weight loss, night sweats, or any other symptoms at this time. Allergies: Coded Allergies: adhesive (Verified Allergy, Unknown, 05/19/15) metoprolol (Unverified Allergy, Unknown, 12/11/19) Home Meds Active Scripts Prednisone (Prednisone) 20 Mg Tablet, 1 TAB PO AD for 6 Days, #14 TAB 0 Refills TAKE 1 TAB BY MOUTH THREE TIMES PER DAY X3 DAYS, THEN TAKE 1 TAB BY MOUTH TWICE A DAY X2 DAYS, THEN TAKE 1 TAB BY MOUTH ONCE A DAY X1 DAY. Prov:CARLY MALONEY MD 11/28/23 Sulfamethoxazole/Trimethoprim (Bactrim Ds Tablet) 800 Mg-160 Mg Tablet, 1 TAB PO BID for 14 Days, #28 TAB 0 Refills Prov:CARLY MALONEY MD 11/28/23 Sucralfate (Sucralfate) 1 Gram Tablet, 1 GM PO QID, #60 TAB 0 Refills MUST DISSOLVE IN WATER DO NOT CRUSH Prov:VALDEZ LOMBARDI MD 10/18/23 Pantoprazole Sodium (Protonix) 40 Mg Ectab, 40 MG PO DAILY, #15 TAB.EC 0 Refills Prov:VALDEZ LOMBARDI MD 10/18/23 Reported Medications [Insulin] No Conflict Check, 38 UNITS SQ DAILY 10/14/23 Azelastine/Fluticasone (Azelastin-Flutic 137-50Mcg Spr) 137 Mcg-50 Mcg/[place].pump, 2 SPRAY NS BID 10/14/23 Atorvastatin Calcium (LIPITOR) 40 Mg Tablet, 40 MG PO HS, TAB 12/13/22 Valsartan (Valsartan) 80 Mg Tablet, 80 MG PO DAILY, TAB 12/25/19 Apixaban (Eliquis) 5 Mg Tablet, 5 MG PO BID, TAB 01/08/19 Empagliflozin (Jardiance) 10 Mg Tablet, 10 MG PO DAILY, TAB 01/08/19 Metformin HCl (Metformin HCl) 1,000 Mg Tablet, 1000 MG PO BID, TAB 05/19/15 Past Medical History Past Medical History: A-Fib, Diabetes-Type II, Hypertension Past Surgical History: Other Surgical History Other: BACK,BILATERAL KNEE, RT SHOULDER Social History Social History: Negative, Lives with family ROS Dictation CONSTITUTIONAL: Negative except for HPI HEAD/FACE: Negative except for HPI EENT: Negative except for HPI RESPIRATORY: Negative except for HPI GASTROINTESTINAL/ABDOMINAL: Negative except for HPI GENITOURINARY: Negative except for HPI MUSCULOSKELETAL: Negative except for HPI INTEGUMENTARY: Negative except for HPI NEUROLOGICAL/PSYCH: Negative except for HPI HEMATOLOGIC/LYMPHATIC: Negative except for HPI All Systems Negative, Except as noted above. 13 point review of systems assessed and all negative except for above. Physical Exam Physical Exam Dictation Vital Signs reviewed General Appearance: Alert, oriented x 3, no acute distress, well developed, nourished. Head and Face: non-traumatic. Eyes: PERRL, pink conjunctivas, eyelid no trauma, anterior chamber with arcus senilis. Ears: Pinnas intact and no signs of trauma or erythema ear canals clear and no discharge TM no erythema Nose: No discharge, no bleeding. Oropharynx: Mouth normal, tongue pink, pharynx clear,no erythema, tonsils no exudates, no abscesses noted, mucous membrane moist Neck: Supple, non-tender, no thyromegaly, no masses, no JVD, no bruits Breast:Deferred Chest:No tenderness, no crepitus, no paradoxical movement, no retractions Lungs:Clear, well-ventilated, symmetric, no rales, no wheezing, no rhonchi, no stridor, good breath sounds bilaterally Heart: Regular rate, regular rhythm, no murmur, no gallops Vascular: no peripheral edema, Abdomen: Soft, positive bowel sounds, nondistended, no guarding, nontender, no rebound, no masses no hepatomegaly, no splenomegaly, no San's sign, no hernias. Rectal: Deferred Genital: Deferred Neurological: Normal speech, motor function intact, sensory function intact Musculoskeletal: Neck nontender, full range of motion, back nontender, full range of motion, Extremities: nontender, full range of motion Skin: Color pink, dry, no turgor, no rash, no lacerations, no abrasions, no contusions. Lymphatic: Deferred MDM MDM: Patient is a 61-year-old male presenting to the emergency department with concerns of a possible TB exposure. Patient states that on February 08 he visited a local assisted here in [place]. He was in the assisted for less than an hour visiting a relative. Today on the news he was informed that there was a TB case in that same assisted. On arrival he specifically denies any chest pain, shortness of breath, cough, hemoptysis, fever, chills, weight loss, night sweats, or any other symptoms at this time. His physical examination is unremarkable. His vital signs are stable. I did offer a chest x-ray however patient kindly refused stating that he needed to be out of the ER at 9:00 p.m. because he needed to hop picker his . He is declining a chest x- ray at this time. It did advised that he follow up with his primary care doctor as soon as possible for further evaluation. Patient will be discharged home Differential diagnosis: Wellness examination, TB exposure, There are no social concerns with this patient. Prescription drug management Prescriptions will include: None Medical management and examination interpretation discussions were had by me with other qualified healthcare professionals as indicated for the patient's c are. ED Course Vital Signs Date Time Temp Pulse Resp B/P (MAP) Pulse Ox O2 Delivery O2 Flow Rate FiO2 02/17/24 19:34 98.1 65 16 133/86 97 Room Air 0 DX & DISP Disposition: Discharge Departure Impression: Primary Impression: Wellness examination Condition: Stable Additional Instructions: Based on your history and physical examination your at a low risk for developing/misael tuberculosis. Over the next couple of days to weeks please monitor your health. If you develop any high fevers, shortness of breath, night sweats, weight loss, or blood in your cough please report to the ER for further evaluation. Follow up with your primary care doctor for further evaluation. Return to the emergency department for any new or worsening symptoms. Referrals: ROSY HARRIS (PCP) I have reviewed the case, and I agree with, Diagnosis and Plan I performed the substantive portion of the visit. I have reviewed and personally made and approve the management plan that is documented in the note by myself or the PATRICIA. I acknowledge for responsibility for the patient's management plan. WADE MORA Feb 17, 2024 20:31
== END 2024-02-17 20:38 | disposition home or self-care (01) ==
LOC: EDH 19:30
DX: Z00.8 Encounter for other general examination (principal); E11.9 Type 2 diabetes mellitus without complications; I10 Essential (primary) hypertension; Z79.01 Long term (current) use of anticoagulants; Z79.84 Long term (current) use of oral hypoglycemic drugs; Z79.899 Other long term (current) drug therapy
CPT/HCPCS: 99281

== ENCOUNTER 2024-12-28 07:02 | Day surgery (SDC) | payer MEDICARE ==
[2024-12-26 12:02] VITALS: BP 129/82; PULSE 68; RESP 14; TEMP 98.8
[~2024-12-28] VITALS: Ht 170.2 cm; Wt 110.8 kg
[2024-12-28] VITALS (11 sets, daily range): BP systolic 114–137; BP diastolic 54–81; PULSE 46–56; RESP 15–18; TEMP 97.1–97.6
[~2024-12-28 07:02] MED LIST changes: +0.9%NACL 1000ML 1,000 ML IV ONE; +APIX2.5T PO; -APIX5TAB PO; -AZEL23SP2 NS; +HYDR-4060 PO; +INSULIN INJ; -INSULIN SQ; +NAPR-1505 PO; +OMEP40CA21 PO; -PANT40TA55 PO; -PRED20TA3 PO; -SUCR1TAB2 PO; -SULF1TAB42 PO; +probiotic PO; +vitamin b 12 PO; +vitamin e PO
[2024-12-28] MEDS ORDERED: MIDAZOLAM HCL 1 MG/ML 2ML VIAL ONE (07:25)
[2024-12-28] MEDS: IOHEXOL 180 MG/ML 10 ML VIAL ONE (08:23)
--- NOTE | 2024-12-28 09:04 | NUR ---
POST-OP RECOVERY PATIENT AWAKE AND ORIENTED X4. BANDAID TO LEFT UPPER THIGH. NO ACTIVE BLEEDING OR DRAINAGE. NO REDNESS OR SWELLING. PATIENT ABLE TO WIGGLE TOES AND MOVE FOOT.
--- NOTE | 2024-12-28 09:30 | OP ---
Operative Note: DATE OF PROCEDURE: 12/28/24 PREOPERATIVE DIAGNOSIS: Left hip osteoarthritis. POSTOPERATIVE DIAGNOSIS: Left hip osteoarthritis. PROCEDURE PERFORMED: Left hip intra-articular steroid injection with fluoroscopic guidance. SURGEON: Moriah Sahni MD DIE CASTING MACHINE MAINTAINER: None. ANESTHESIA: MAC . ANESTHESIA: YOLI Howard. ESTIMATED BLOOD LOSS: None. COMPLICATIONS: None. DRAINS: None. SPECIMENS REMOVED: None. STATEMENT OF MEDICAL NECESSITY: The patient is a 69-year-old male who suffers from left hip osteoarthritis responding well to intra-articular steroid injection. After discussion of the risks, benefits and alternatives with the patient , he voluntarily agreed to undergo the aforementioned procedure. DESCRIPTION OF PROCEDURE: The patient was properly identified in the preoperative holding area. Surgical site marking verified. Surgery consent reviewed. He was then taken to the operating room and placed on the OR table in a supine position. After induction of anesthetic, all bony prominences were well padded. A surgical timeout was done verifying the correct surgery side, s ite, and location to be performed. The left hip was then prepped and draped in the usual sterile fashion. We then began our procedure using fluoroscopic guidance to localize the hip joint. I then used an 18-gauge spinal needle to access the hip joint and injected a cocktail with 80mg Depo-Medrol, Marcaine and omnipaque. Using a small amount of the injection, we verified placement of the needle in the joint with fluoroscopy. Once we saw the contrast lining the joint capsule, we then injected the remaining portion of the cocktail and we took fluoroscopy verifying again the injection was done in the right place. We then withdrew our needle and applied a Band-Aid to the injection site. The patient was then awakened from anesthesia and taken to the recovery room in stable condition. MORIAH SAHNI MD Dec 28, 2024 09:30
--- NOTE | 2024-12-28 12:44 | HMCIMG ---
Intraoperative fluoroscopic assessment of the left hip INDICATION: Left hip steroid injection COMPARISON: None available Fluoroscopy time: 0.59 seconds. FINDINGS: 8 images demonstrate needle in the left hip joint space in satisfactory position for steroid injection. IMPRESSION: Details of the finding in the procedure note.
== END 2024-12-28 09:34 | disposition home or self-care (01) ==
LOC: DAH 07:02
PROVIDERS: ATTEND Student in an Organized Health Care Education/Training Program
DX: M16.12 Unilateral primary osteoarthritis, left hip (principal); G47.33 Obstructive sleep apnea (adult) (pediatric); I25.10 Atherosclerotic heart disease of native coronary artery without angina pectoris; I48.91 Unspecified atrial fibrillation; E11.9 Type 2 diabetes mellitus without complications; E78.5 Hyperlipidemia, unspecified; Z98.890 Other specified postprocedural states; Z99.89 Dependence on other enabling machines and devices; Z79.01 Long term (current) use of anticoagulants; Z20.822 Contact with and (suspected) exposure to COVID-19; Z88.8 Allergy status to other drugs, medicaments and biological substances; Z79.4 Long term (current) use of insulin; Z79.899 Other long term (current) drug therapy
CPT/HCPCS: 20610; 82948 ×2; 77002; 73503; J1010; A4663; J3010; J7030; J2250; J2704; J0665; Q9965; A4930; A5120; A4215; A4213; A4222; A4221; A4216; A4223 ×2; J0690; J3490

== ENCOUNTER 2025-02-25 06:27 | Day surgery (SDC) | payer MEDICARE ==
[~2025-02-25] VITALS: Ht 167.6 cm; Wt 113.4 kg
[2025-02-25] VITALS (11 sets, daily range): BP systolic 113–135; BP diastolic 56–73; PULSE 50–55; RESP 14–17; TEMP 97.4–98.1
[2025-02-25] MEDS: 0.9%NACL 1000ML 1,000 ML IV ONE (06:53)
--- NOTE | 2025-02-25 09:54 | NUR ---
Full and complete discharge instructions given to Patient and Family both verbally and in writing. Tolerated fluids and voided in bathroom. PIV removed with catheter tip intact. W/C to POV with Family to home.
== END 2025-02-25 09:55 | disposition home or self-care (01) ==
LOC: ENDO 06:27 → DAH 06:27 → ENDO 09:55
PROVIDERS: ATTEND Internal Medicine Gastroenterology
DX: K58.0 Irritable bowel syndrome with diarrhea (principal); D12.2 Benign neoplasm of ascending colon; D12.4 Benign neoplasm of descending colon; D12.3 Benign neoplasm of transverse colon; K57.30 Diverticulosis of large intestine without perforation or abscess without bleeding; I10 Essential (primary) hypertension; E78.5 Hyperlipidemia, unspecified; E11.9 Type 2 diabetes mellitus without complications; K21.9 Gastro-esophageal reflux disease without esophagitis; I48.91 Unspecified atrial fibrillation; Z86.0100 Personal history of colon polyps, unspecified; Z79.899 Other long term (current) drug therapy; Z98.890 Other specified postprocedural states
CPT/HCPCS: 82948 ×2; 45380; 45385; J7030; J2704; A4620; A4215; J3490